=== PATIENT | female | born 1995 | race Caucasian/White ===

== ENCOUNTER 2022-10-11 20:10 | Emergency (ER) | payer MEDICAID ==
--- NOTE | 2022-10-11 20:14 | ED Physician Documentation ---
History of Present Illness - Stated complaint Stated Complaint: POST OP INFECTION - History obtained from History obtained from: Patient - Additonal information Additional information: HPI from patient. Patient underwent last month (September 13), and then underwent lap bossman 2 days later (September 15). She presents the emergency department this time due to scant purulent discharge from 2 of the surgical sites. She denies pain and has not noticed any redness around the affected areas. The discharge is from 2 of the trocar insertion sites in the abdominal wall for the cholecystectomy. This discharge was just noticed today; she describes the discharge as thick and opaque/milky. Denies fever, denies abdominal pain. Besides noticing the discharge, she otherwise feels well and is here only due to concern that the discharge might be due to infection Review of Systems Constitutional: denies: Fever, Chills, Sweats GI: denies: Abdominal Pain, Nausea, Vomiting Skin: denies: Rash, Lesions PD PAST MEDICAL HISTORY - Past Medical History Past Medical History: No - Past Surgical History General: Cholecystectomy /OPERATIONS LEADER: section - Present Medications Home Medications: Ambulatory Orders Medication Instructions Recorded Confirmed Doxycycline [Vibramycin] 100 mg PO BID #10 tablet 10/11/22 Sertraline [Zoloft] 10 mg PO QPM 10/11/22 10/11/22 - Allergies Allergies/Adverse Reactions: Allergies Allergy/AdvReac Type Severity Reaction Status Date / Time No Known Drug Allergies Allergy Verified 10/11/22 20:24 PD ED PE NORMAL - Vitals Vital signs reviewed: Yes - General General: Alert and oriented X 3, No acute distress, Well developed/nourished - Abdomen Abdomen: Soft, Non tender, Non distended PD ED PE EXPANDED - Abdomen Abdomen Visual: 1 - deformity (punctate (1-2mm diameter) opening to dermal layer with scant discharge (too scant to characterize) with pressure. no fluctuance, tenderness, erythema) 2 - deformity (2 punctate opening c/w sinus tract to dermal layer with scant discharge to scant to characterize; no erythema, fluctuance, tenderness) Results - Vitals Vitals: Vital Signs - 24 hr 10/11/22 20:15 Temperature 36.1 C L Heart Rate 57 L Respiratory 16 Rate Blood Pressure 124/69 O2 Saturation 100 Oxygen O2 Source Room air PD Medical Decision Making - ED course Complexity details: considered differential, d/w patient ED course: Patient has 3 areas of punctate openings at sites of trocar insertion from [facility] last month. These openings are 1 to 2 mm diameter, appeared to only go to the dermal layer, and there is scant discharge that is only expressed with pressure to the areas. The discharge is too small to characterize (such as purulence versus serosanguineous). No evidence of cellulitis nor concern for abscess or deeper infection (lack of fever, abdominal tenderness, fluctuance). Patient's description is suggestive of purulent discharge, and thus she is given 100 mg p.o. doxycycline provided prescription for 5-day course of same. Return precautions discussed Departure - Departure Disposition: Home, Self Care Clinical Impression: Post-operative infection Condition: Good Instructions: ED Infec Skin Cellulitis Prescriptions: Doxycycline [Vibramycin] 100 mg PO BID #10 tablet Comments: You are given the first dose of an antibiotic (doxycycline) in the emergency department, and a prescription for 5-day course of this antibiotic has been electronically submitted to the [facility] in [place]. Follow-up with your primary care provider Sunday as scheduled. You should also contact your surgeon's office in the morning when they open to arrange for next available appointment for reevaluation. In addition to washing the area twice a day with soap and water, you should apply an antibiotic ointment such as bacitracin twice per day
[2022-10-11 20:24] VITALS: BP 124/69
[2022-10-11] MEDS ORDERED: DOXYCYCLINE 100 MG TABLET PO ONE (20:28)
== END 2022-10-11 20:35 | disposition home or self-care (01) ==
LOC: ED 20:10
DX: T81.40XA Infection following a procedure, unspecified, initial encounter (principal)
CPT/HCPCS: 99282; 99283; A9270